=== PATIENT | male | born 2000 | race Caucasian/White ===

== ENCOUNTER 2020-10-14 10:16 | Outpatient (CLI) | payer OTHER | END 2020-10-14 10:18 | disposition home or self-care (01) | LOC: PPH VACUNA 10:16 → LAB 10:16 → PPH VACUNA 10:18 | DX: Z23 Encounter for immunization (principal) ==

== ENCOUNTER → 2021-01-11 08:41 | Outpatient (CLI) | payer OTHER | END | disposition home or self-care (01) | LOC: NUCLEAR 08:41 | PROVIDERS: ATTEND Internal Medicine Cardiovascular Disease | DX: Q21.1 Atrial septal defect (principal) ==

== ENCOUNTER 2021-04-19 08:55 | Outpatient (CLI) | payer OTHER | END 2021-04-19 16:04 | disposition home or self-care (01) | LOC: LAB 08:55 | PROVIDERS: ATTEND Specialist | DX: E03.9 Hypothyroidism, unspecified (principal); I11.9 Hypertensive heart disease without heart failure ==

== ENCOUNTER 2021-07-24 19:25 | Emergency (ER) | payer OTHER ==
[~2021-07-24] VITALS: Ht 170.2 cm; Wt 63.5 kg
[2021-07-24] MEDS ORDERED: NAPROXEN375 MG PO (21:37)
== END 2021-07-24 21:44 | disposition home or self-care (01) ==
LOC: ER 19:25
DX: S00.83XA Contusion of other part of head, initial encounter (principal); W50.0XXA Accidental hit or strike by another person, initial encounter; Y93.75 Activity, martial arts; Y92.39 Other specified sports and athletic area as the place of occurrence of the external cause; Y99.8 Other external cause status

== ENCOUNTER 2021-07-27 14:29 | Outpatient (CLI) | payer OTHER ==
[~2021-07-27 14:29] MED LIST: NAPROXEN375 MG PO
== END 2021-07-27 14:39 | disposition home or self-care (01) ==
LOC: RAD 14:29
DX: R07.89 Other chest pain (principal); Z13.83 Encounter for screening for respiratory disorder NEC

== ENCOUNTER 2021-12-29 14:17 | Emergency (ER) | payer OTHER ==
[~2021-12-29] VITALS: Ht 170.2 cm; Wt 64.4 kg
== END 2021-12-29 16:32 | disposition home or self-care (01) ==
LOC: ER 14:17
DX: K29.00 Acute gastritis without bleeding (principal); R11.10 Vomiting, unspecified

== ENCOUNTER 2023-01-09 10:31 | Emergency (ER) | payer OTHER ==
[~2023-01-09] VITALS: Ht 170.2 cm; Wt 63.0 kg
[2023-01-09] MEDS ORDERED: ALLEGRA-D 24 H1 EACH PO (15:15)
== END 2023-01-09 15:24 | disposition home or self-care (01) ==
LOC: ER 10:31
DX: B34.8 Other viral infections of unspecified site (principal); Z20.822 Contact with and (suspected) exposure to COVID-19